=== PATIENT | female | born 1940 | race Caucasian/White ===

== ENCOUNTER → 2017-10-09 | Outpatient (CLI) | payer MEDICARE, OTHER ==
[~2017-10-09] MED LIST: CALCIUM; CYAN1000 SL; EZET10; IBUP600 PO; MEGA MULTI FOR1 EACH PO; OMEP10ER; OXYB5 PO; OXYC5 PO; TURMERIC500 M1 PO; VITAMENS; VITAMIN D5000 UNIT PO
== END ==
LOC: PLD 07:58 → LAB SHORT 07:58
DX: D22.72 Melanocytic nevi of left lower limb, including hip (principal)
CPT/HCPCS: 88305

== ENCOUNTER 2019-02-24 08:52 | Day surgery (SDC) | payer MEDICARE, OTHER ==
[~2019-02-24] VITALS: Ht 175.3 cm; Wt 75.4 kg
[~2019-02-24 08:52] MED LIST changes: +ANASTROZOLE PO; +CALCIFOOD PO; +VITAMIN B125000 MCG PO; +[UNRECOGNIZED DRUG - OTHER]; +[UNRECOGNIZED DRUG - OTHER]
[2019-02-24] MEDS ORDERED: OXYB5 (09:39)
[2019-02-24] MEDS ORDERED: BIOTIN1000 MCG (09:40)
== END 2019-02-24 11:35 | disposition home or self-care (01) ==
LOC: ORSCSDS 08:52
PROVIDERS: Ophthalmology
PROC: 08RJ3JZ Replacement of Right Lens with Synthetic Substitute, Percutaneous Approach (ICD-10-PCS; principal; 2019-02-24 10:30)
DX: H25.11 Age-related nuclear cataract, right eye (principal); H52.201 Unspecified astigmatism, right eye; G47.33 Obstructive sleep apnea (adult) (pediatric); Z79.899 Other long term (current) drug therapy
CPT/HCPCS: J2001; J2250; J3301; J7120; V2632

== ENCOUNTER 2019-03-10 09:06 | Day surgery (SDC) | payer MEDICARE, OTHER ==
[~2019-03-10] VITALS: Ht 175.3 cm; Wt 75.7 kg
[~2019-03-10 09:06] MED LIST changes: +BIOTIN1000 MCG; +OXYB5
== END 2019-03-10 12:25 | disposition home or self-care (01) ==
LOC: ORSCSDS 09:06
PROVIDERS: Ophthalmology
PROC: 08RK3JZ Replacement of Left Lens with Synthetic Substitute, Percutaneous Approach (ICD-10-PCS; principal; 2019-03-10 10:30)
DX: H25.12 Age-related nuclear cataract, left eye (principal); H52.202 Unspecified astigmatism, left eye; G47.33 Obstructive sleep apnea (adult) (pediatric); Z79.899 Other long term (current) drug therapy
CPT/HCPCS: J2001; J2250; J3301; V2632

== ENCOUNTER → 2019-09-20 | Outpatient (CLI) | payer MEDICARE, OTHER | LOC: LAB SHORT 13:55 → LAB EV 13:55 | DX: R30.9 Painful micturition, unspecified (principal) | CPT/HCPCS: 87077; 87086; 87186 ==

== ENCOUNTER → 2019-11-01 | Outpatient (CLI) | payer MEDICARE, OTHER | END | disposition home or self-care (01) | LOC: LAB SHORT 11:30 → LAB EV 11:30 | DX: R35.0 Frequency of micturition (principal) | CPT/HCPCS: 87077; 87086; 87186 ==

== ENCOUNTER → 2020-09-18 | Outpatient (CLI) | payer MEDICARE, OTHER | END | disposition home or self-care (01) | LOC: LAB EV 10:08 | DX: N39.0 Urinary tract infection, site not specified (principal) | CPT/HCPCS: 87077; 87086; 87186 ==

== ENCOUNTER → 2020-10-16 | Outpatient (CLI) | payer MEDICARE, OTHER | LOC: LAB SHORT 14:57 → LAB EV 14:57 | DX: M54.5 Low back pain (principal) | CPT/HCPCS: 87077; 87086; 87186 ==

== ENCOUNTER → 2020-12-20 | Outpatient (CLI) | payer MEDICARE, OTHER | LOC: LAB SHORT 16:01 → PLD 16:01 | DX: D48.5 Neoplasm of uncertain behavior of skin (principal); B07.9 Viral wart, unspecified | CPT/HCPCS: 88305 ==

== ENCOUNTER → 2021-04-18 | Outpatient (CLI) | payer MEDICARE, OTHER | END | disposition home or self-care (01) | LOC: LAB SHORT 08:24 | DX: L72.0 Epidermal cyst (principal) | CPT/HCPCS: 88304 ==